=== PATIENT | female | born 1960 | race Hispanic/Latino ===

== ENCOUNTER → 2024-06-12 | Outpatient (CLI) | payer OTHER ==
--- NOTE | 2024-06-14 07:52 | HMCSR ---
APPROVED REPORT EXAM: Two-dimensional and M-mode echocardiogram with Doppler and color Doppler. INDICATION ICD: I10 Essential hypertension 2D Dimensions RVDd4.1 cmLVEF(%)69.4 (>50%)LVEF(%, simp.)61 % IVSd0.7 (0.7-1.1cm)FS(%)39 %LA ESV INDEX (BP)28.20 mL/m2 LVDd4.7 (3.8-5.6cm)LA (2D)4.3 (1.6-4.0cm) PWd0.6 (0.7-1.1cm)Ao Root(2D)2.4 (2.0-3.7cm) IVSs1.0 cmLVOT diam1.8 (1.8-2.4cm) LVDs2.9 (2.5-4.0cm)IVC diam1.2 cm PWs1.4 cm M-Mode Dimensions EPSS0.6 cm LA (MM)5.1 (1.6-4.0cm) Ao Root(MM)2.5 (2.0-3.7cm) Aortic Valve AoV Vmax1.6 m/Maureen Peak GR10.8 mmHgLVOT Vmax1.5 m/s AoV VTI0.4 mAo Mean GR6.0 mmHgLVOT VTI0.32 m KENDELL (VMAX)2.2 cm2AVA (VTI) 2.2 cm2 Mitral Valve MV E Vmax96.1 cm/sDECEL Pxwz212 ms MV A Vmax76.9 cm/sP 1/2 T67 ms E/A ratio1.2MVA (PHT)3.3 cm2 TDI E/E' Qwlnbj20.7E/E' Lateral9.6 Medial E' Peak V7.00 cm/sLateral E' Peak V10.00 cm/s Pulmonary Valve PV Vmax0.8 m/s Tricuspid Valve TR Vmax2.6 m/sRVSP26.8 mmHg TR Peak GR27.3 mmHg Left Ventricle The left ventricle is normal size. There is normal left ventricular wall thickness. LVEF is 60-65%. T he left ventricular diastolic function is normal. Right Ventricle The right ventricle is normal size. The right ventricular systolic function is normal. Atria The left atrium is mildly dilated. The right atrium size is normal. Aortic Valve The aortic valve is normal in structure. No aortic regurgitation is present. There is no aortic valvu lar stenosis. Mitral Valve The mitral valve is normal in structure. Mitral regurgitation is mild. There is no mitral valve steno sis. Tricuspid Valve The tricuspid valve is normal in structure. There is trace of tricuspid valve regurgitation noted. Pulmonic Valve The pulmonary valve is normal in structure. There is no pulmonic valvular regurgitation. Great Vessels The aortic root is normal in size. The IVC is normal in size and collapses >50% with inspiration. Pericardium There is no pericardial effusion. Other Information Quality : Adequate Conclusion The left ventricle is normal size. LVEF is 60-65%. Mitral regurgitation is mild.
== END | disposition home or self-care (01) ==
LOC: RAH 13:34
PROVIDERS: ATTEND Internal Medicine Cardiovascular Disease
DX: I34.0 Nonrheumatic mitral (valve) insufficiency (principal); I11.9 Hypertensive heart disease without heart failure
CPT/HCPCS: 93306